=== PATIENT | male | born 1945 | race Caucasian/White ===

== ENCOUNTER 2022-03-13 10:55 | Inpatient (IN) | payer OTHER, SELFPAY ==
[2022-03-13] VITALS (17 sets, daily range): BP systolic 157–191; BP diastolic 72–135; PULSE 57–82; RESP 12–20; TEMP 36.1–37.1; O2SAT 91–99; BMI 27.3
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
--- NOTE | 2022-03-13 | SCC_ITS ---
Procedure done: Open reduction internal fixation right bimalleolar ankle fracture dislocation with complete dislocation and comminuted fractures 90.7 seconds of fluoroscopic guidance, for a cumulative dose of 0.83 mGy, was provided to Dr. Hand by the radiology department. C-arm images of the RIGHT ankle were saved for the patient's permanent record. [facility]
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
[2022-03-13 11:45] LABS: Basophils # 0.1 10^3/uL (0.0-0.1); Basophils % 0.6 %; Eosinophils # 0.2 10^3/uL (0.0-0.8); Hematocrit 36.5 % (42.0-52.0); Hemoglobin 12.7 g/dL (11.7-16.6); Lymphocytes # 1.9 10^3/uL (0.8-4.8); Lymphocytes % 17.5 %; Mean Corpuscular HGB Conc 34.8 g/dL (30.0-36.0); Mean Corpuscular Hemoglobin 30.5 pg (28.0-34.0); Mean Corpuscular Volume 87.7 fl (80-94); Mean Platelet Volume 10.4 fL (7.4-10.4); Monocytes # 0.8 10^3/uL (0.2-0.9); Monocytes % 7.1 %; Neutrophils # 7.77 10^3/uL (1.8-7.7); Neutrophils % 72.2 %; Nucleated Red Blood Cells % 0 %; Platelet Count 250 10^3/cmm (130-400); Red Blood Count 4.16 10^6/uL (4.1-5.3); Red Cell Distribution Width 12.7 % (12.1-15.1); White Blood Count 10.8 10^3/uL (4.0-10.0)
[2022-03-13] MEDS: iodixanol 320 mg/mL 100mL Btl IV (11:52)
[2022-03-13] MEDS: tetanus-diphtheria tox (adult) 0.5 mL SDV IM (11:58)
--- NOTE | 2022-03-13 12:05 | PC.PHAR ---
MEDS VERIFIED USING MED LIST FROM PT. [facility] FILL[facility] AND [facility] ARE CLOSED
[2022-03-13 12:15] LABS: Alanine Aminotransferase 12 U/L (0-41); Albumin Level 4.2 g/dL (3.5-5.2); Alkaline Phosphatase 79 IU/L (40-130); Aspartate Amino Transferase 23 U/L (0-40); Blood Urea Nitrogen 14 mg/dL (8-23); Calcium 8.8 mg/dL (8.5-10.5); Carbon Dioxide 23 mmol/L (22-29); Chloride 107 mmol/L (98-107); Globulin 2.6 g/dL (1.3-4.6); Glucose 114 mg/dL (65-115); Osmolality Calculated 293 mOsm/kg (285-295); Sodium 141 mmol/L (136-145); Total Bilirubin 0.8 mg/dL (0.15-1.2); Total Protein 6.8 g/dL (6.6-8.7)
[2022-03-13 12:21] LABS: Add Urine Microscopic? NO; Charge for UA Resulting for Rev
[2022-03-13 12:25] LABS: Protein Urine Neg (Negative); Specific Gravity, Urine 1.015 (1.005-1.030); Urine Appearance Clear (CLEAR); Urine Color Yellow (Yellow); pH Urine 5 (5-7)
[2022-03-13 12:26] LABS: Bilirubin Urine Neg (Negative); Blood Urine Neg (Negative); Glucose Urine UA Norm (Normal); Ketones Urine Negative (Negative); Leukocyte Esterase Urine Negative (Negative); Nitrate Urine Negative (Negative); Urobilinogen Urine Norm (Negative)
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
--- NOTE | 2022-03-13 13:43 | ECG_ITS ---
[facility] Test Date: 2022-03-13 Pat Name: Parminder Shore Department: Room: 257 Gender: Male [employer] Mounter: : 1945 Requested By: Aram White Order Number: [id number] Shon MD: Gerda Heard M.D. Measurements Intervals [place] Rate: 63 P: 59 KS: 174 QRS: -2 QRSD: 110 T: 69 QT: 406 QTc: 418 Interpretive Statements SINUS RHYTHM WITH OCCASIONAL SUPRAVENTRICULAR PREMATURE COMPLEXES INCOMPLETE RIGHT BUNDLE BRANCH BLOCK [90+ ms QRS DURATION, TERMINAL R IN V1/V2, 40+ ms S IN I/aVL/V4/V5/V6] NONSPECIFIC ST & T-WAVE ABNORMALITY No previous ECG available for comparison Electronically Signed On 03-14-2022 13:01:24 CDT by Gerda Heard M.D. [email or web address]
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
[2022-03-13] MEDS: acetaminophen 1,000 MG/100 ML PIGGYBACK 400 MG IV (14:54)
[2022-03-13] MEDS: CELEcoxib 200 mg Capsule 400 MG PO (14:55)
[2022-03-13] MEDS: fentaNYL 50 mcg/mL INJ 2mL IVP (15:24)
--- NOTE | 2022-03-13 15:44 | P.ANESASSM_ITS ---
Pre-Anesthetic Assessment Height/Weight: Height 1.7 m Weight 79.379 kg Temp Pulse Resp BP Pulse Ox 97.2 F L 82 18 172/100 96 03/13/22 14:45 03/13/22 14:45 03/13/22 14:45 03/13/22 14:45 03/13/22 14:45 Preop Diagnosis: Right ankle fracture dislocation Operation Date: 03/13/22 15:50 Proposed Procedures p ORIF Ankle(Right) - Alina Hand MD Familial anesthetic complications: none Was Beta Osmar taken within 24 hours: Yes Was Clonidine taken within 24 hours: Yes Social No alcohol and No tobacco Exam alert, oriented x 3 and regular rate & rhythm Airway Submandibular: within normal limits Cervical ROM: within normal limits Mallampati: Class II Dentition: false Pulmonary Chronic Obstructive Pulmonary Disease CV/HEM Coronary Artery Disease, Hypertension and Myocardial Infarction (stent X 5) cardiomegaly Chronic Renal Insufficiency Metabolic Hyperlipidemia [facility] [place] Lower Back Pain Anesthetic Plan ASA status: 3 Anesthesia: General and Regional (specify below) (right pop blk) Medications/Allergies Home Medications Medication Instructions Recorded Confirmed Last Taken Type carvedilol 6.25 mg tablet 6.25 mg PO BID 03/13/22 03/13/22 03/13/22 History cholecalciferol (vitamin D3) 50 50 mcg PO DAILY 03/13/22 03/13/22 03/13/22 History mcg (2,000 unit) tablet (Vitamin D3) clonidine HCl 0.1 mg tablet 1 mg PO BID 03/13/22 03/13/22 03/13/22 History docusate sodium 50 mg capsule 50 mg PO BEDTIME 03/13/22 03/13/22 03/12/22 History (Stool Softener) gabapentin 300 mg capsule 300 mg PO BID 03/13/22 03/13/22 03/13/22 History hydrocodone 10 mg-acetaminophen 1 tab PO QID 03/13/22 03/13/22 03/13/22 History 325 mg tablet hydroxyzine HCl 50 mg tablet 50 mg PO QID PRN 03/13/22 03/13/22 Unknown History prazosin 2 mg capsule 2 mg PO QPM 03/13/22 03/13/22 03/12/22 History simvastatin 40 mg tablet 20 mg PO QPM 03/13/22 03/13/22 03/12/22 History tamsulosin 0.4 mg capsule 0.4 mg PO DAILY 03/13/22 03/13/22 03/13/22 History vitamins-lipotropics 200 mg-100 mg 2 tab PO DAILY 03/13/22 03/13/22 03/13/22 History tablet (Lipo-Flavonoid Plus) Allergies Allergy/AdvReac Type Severity Reaction Status Date / Time No Known Allergies Allergy Unverified 03/13/22 12:05 Current Medications Generic Name Dose Route Start Last Admin Trade Name Freq PRN Reason Stop Dose Admin Fentanyl 50 mcg 03/13/22 15:22 03/13/22 15:24 Fentanyl 50 Mcg/Ml Inj 2ml IVP 50 mcg Q10M PRN Administration Preop Pain PFSH Anesthesia Medical History BPH (benign prostatic hyperplasia) Hyperlipidemia Hypertension Data Anesthesia : 03/13/22 11:24 03/13/22 11:24 Short CBC 03/13/22 Range/Units 11:24 WBC 10.8 H (4.0-10.0) 10^3/uL Hgb 12.7 (11.7-16.6) g/dL Hct 36.5 L (42.0-52.0) % MCV 87.7 (80-94) fl Plt Count 250 (130-400) 10^3/cmm Neut % (Auto) 72.2 % Neut # (Auto) 7.77 H (1.8-7.7) 10^3/uL BMP 03/13/22 11:24 Sodium 141 Potassium 4.0 Chloride 107 Carbon Dioxide 23 BUN 14 Creatinine 1.1 Glucose 114 Calcium 8.8 Liver Function 03/13/22 Range/Units 11:24 Total Bilirubin 0.8 (0.15-1.2) mg/dL AST 23 (0-40) U/L ALT 12 (0-41) U/L Alkaline Phosphatase 79 (40-130) IU/L Albumin 4.2 (3.5-5.2) g/dL Urine 03/13/22 Range/Units 12:16 Urine Color Yellow (Yellow) Urine Appearance Clear (CLEAR) Urine pH 5 (5-7) Ur Specific Harbinger 1.015 (1.005-1.030) Urine Protein Neg (Negative) Urine Glucose (UA) Norm (Normal) Urine Ketones Negative (Negative) Urine Nitrate Negative (Negative) Urine Bilirubin Neg (Negative) Ur Leukocyte Esterase Negative (Negative) Cardiac Studies: No Data to Display Anesthesia Procedures Nerve Block Nerve Block 1: Main Anesthesia: general anesthesia Time Out Performed: Yes Consent: requested by attending/covering physician, from patient, risks and benefits reviewed and patient agrees to proceed Nerve block location: popliteal (right) Anesthesia monitors applied: pulse oximetry, EKG, BP cuff and oxygen Nerve block position: supine Anesthetic Used: ropivicaine 0.5% Amount of anesthesia used (mL): 30 Ultrasound used to: recognize landmarks Nerve Stimulator Used?: No Interscalene/Femoral BLK: 4 stimuplex 21 g needle used for position and inplane approach and visualize local anesthetic spread Injection: neg aspiration of heme Patient Tolerated Procedure: well Complications: none
--- NOTE | 2022-03-13 15:49 | PC.NURSE ---
Conscious sedation for reduction of right ankle fracture. Informed consent for signed by and witnessed by RT Angelo This nurse, RT Angelo, and Dr. Shea present in room. 1323: etomidate 10mg administered IVP. vitals: BP 172/111 P70 R14 98%RA Pts ankle reduces and splint applied with assistance and under direction of Dr. Shea. 1338 Pt recovered vitals: BP 165/88 P71 R12 99% RA Continuous cardiac, BP, Spo2 monitoring continued.
[2022-03-13] MEDS: vancomycin 1,000 MG in sodium chloride 0.9% 250 ML 250 MG IV (16:12)
--- NOTE | 2022-03-13 16:40 | PC.NURSE ---
pt beatrice Livingston RN House supervisor brought patient belongings to this nurse, paper was filled out with items listed and placed in [facility]. The items were 3 small zip loc bags filled with home medications, a black handkerchief, and $240 (2-100 bills, 2-20 bills). Placed in [facility], witnessed by Debbie Livingston.
[2022-03-13] MEDS: ceFAZolin 1,000 mg SDV 1000 MG IRRIGATION (16:45)
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
[2022-03-13] MEDS: HYDROmorphone 1 mg/mL INJ 1 mL 0.5 MG IVP (18:33)
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
[2022-03-13] MEDS: D5-NS 0.45% + KCL 20 mEq 20 MEQ/1,000 ML BAG 100 MEQ IV (21:31)
[2022-03-13 21:38] LABS: Basophils % 0.3 %; Hematocrit 39.5 % (42.0-52.0); Hemoglobin 13.2 g/dL (11.7-16.6); Lymphocytes % 10.4 %; Mean Corpuscular HGB Conc 33.4 g/dL (30.0-36.0); Mean Corpuscular Hemoglobin 30.5 pg (28.0-34.0); Mean Corpuscular Volume 91.2 fl (80-94); Mean Platelet Volume 10.6 fL (7.4-10.4); Monocytes # 0.4 10^3/uL (0.2-0.9); Monocytes % 3.6 %; Neutrophils # 8.35 10^3/uL (1.8-7.7); Neutrophils % 84.8 %; Nucleated Red Blood Cells % 0 %; Platelet Count 185 10^3/cmm (130-400); Red Blood Count 4.33 10^6/uL (4.1-5.3); Red Cell Distribution Width 12.6 % (12.1-15.1); White Blood Count 9.8 10^3/uL (4.0-10.0)
[2022-03-13 21:46] LABS: INR 1.09 (0.8-1.2); Partial Thromboplastin Time 24.9 SECONDS (23.9-36.7)
[2022-03-13 21:54] LABS: Alanine Aminotransferase 13 U/L (0-41); Albumin Level 4.1 g/dL (3.5-5.2); Alkaline Phosphatase 73 IU/L (40-130); Aspartate Amino Transferase 32 U/L (0-40); Blood Urea Nitrogen 13 mg/dL (8-23); Calcium 8.5 mg/dL (8.5-10.5); Carbon Dioxide 18 mmol/L (22-29); Chloride 104 mmol/L (98-107); Globulin 2.1 g/dL (1.3-4.6); Glucose 120 mg/dL (65-115); Osmolality Calculated 289 mOsm/kg (285-295); Sodium 139 mmol/L (136-145); Total Protein 6.2 g/dL (6.6-8.7)
[2022-03-13 21:56] LABS: Anion Gap 21.4 (5-19); Potassium 4.4 mmol/L (3.5-5.1)
[2022-03-14] VITALS (8 sets, daily range): BP systolic 117–176; BP diastolic 67–81; PULSE 55–75; RESP 14–18; TEMP 36.6–36.9; O2SAT 93–98
[2022-03-14] MEDS: acetaminophen 1,000 MG/100 ML PIGGYBACK 400 MG IV ×2 (00:49→09:38)
--- NOTE | 2022-03-14 03:55 | PC.NURSE ---
used bladder scanner. shows approximately 200ml. nurse notified
[2022-03-14 05:14] LABS: Basophils % 0.2 %; Hematocrit 33.2 % (42.0-52.0); Hemoglobin 11.7 g/dL (11.7-16.6); Lymphocytes # 1.2 10^3/uL (0.8-4.8); Mean Corpuscular HGB Conc 35.2 g/dL (30.0-36.0); Mean Corpuscular Hemoglobin 30.2 pg (28.0-34.0); Mean Corpuscular Volume 85.8 fl (80-94); Mean Platelet Volume 10.2 fL (7.4-10.4); Monocytes % 9.6 %; Neutrophils # 8.26 10^3/uL (1.8-7.7); Neutrophils % 78.7 %; Nucleated Red Blood Cells % 0 %; Platelet Count 226 10^3/cmm (130-400); Red Blood Count 3.87 10^6/uL (4.1-5.3); Red Cell Distribution Width 12.5 % (12.1-15.1); White Blood Count 10.5 10^3/uL (4.0-10.0)
[2022-03-14 05:44] LABS: Anion Gap 15.2 (5-19); Blood Urea Nitrogen 17 mg/dL (8-23); Calcium 8.2 mg/dL (8.5-10.5); Carbon Dioxide 21 mmol/L (22-29); Chloride 106 mmol/L (98-107); Glucose 161 mg/dL (65-115); Osmolality Calculated 291 mOsm/kg (285-295); Potassium 4.2 mmol/L (3.5-5.1); Sodium 138 mmol/L (136-145)
[2022-03-14] MEDS: oxyCODONE 5 mg IR Tab/Cap PO ×3 (05:49→15:12)
[2022-03-14] MEDS: CELEcoxib 200 mg Capsule PO (09:36)
[2022-03-14] MEDS: cloNIDine 0.1 mg Tablet PO (09:36)
[2022-03-14] MEDS: pantoprazole DR 40 mg Tablet PO (09:36)
[2022-03-14] MEDS: docusate sodium 100 mg Capsule PO (09:36)
[2022-03-14] MEDS: cholecalciferol (vitamin D3) 1,000 unit Tablet 2000 UNIT PO (09:36)
[2022-03-14] MEDS: carvedilol 6.25 mg Tablet PO (09:37)
[2022-03-14] MEDS: gabapentin 300 mg Capsule PO (09:37)
[2022-03-14] MEDS: aspirin 325 mg EC Tablet PO (09:37)
[2022-03-14] MEDS: neomycin-poly-bacitracin oint 28 gm 1 APPLIC TOPICAL (09:39)
[2022-03-14] MEDS: tamsulosin 0.4 mg Capsule PO (09:40)
--- NOTE | 2022-03-14 11:01 | ANE.PACU2 ---
Inpatient post-anesthesia follow up: Airway intact: Yes Vital signs: Temperature 98.4 F Pulse Rate 58 Respiratory Rate 15 Blood Pressure 175/81 Pulse Oximetry 97 Oxygen Delivery Me thod Room Air Oxygen Flow Rate 6 Fraction of Inspir ed Oxygen Hydration adequate: Yes Nausea and vomiting: No Pain level: 3 Mental status: Baseline
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
[2022-03-14 14:06] LABS: Creatine Phosphokinase 556 U/L (39-308)
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
[2022-03-14] MEDS: lisinopril 20 mg Tablet PO (15:08)
== END 2022-03-14 15:30 | disposition home health service (06) | DRG 493 ==
LOC: ER 13:56 → OR 14:19 → MEDSURG 19:16
PROVIDERS: Admitting Provider Specialist; Emergency Provider Family Medicine; Visit Provider Family Medicine
PROC: 0QSJ04Z Reposition Right Fibula with Internal Fixation Device, Open Approach (ICD-10-PCS; principal; 2022-03-13 15:30)
DX: S82.841A Displaced bimalleolar fracture of right lower leg, initial encounter for closed fracture (principal); N17.9 Acute kidney failure, unspecified; M62.82 Rhabdomyolysis; S00.01XA Abrasion of scalp, initial encounter; S60.512A Abrasion of left hand, initial encounter; S60.511A Abrasion of right hand, initial encounter; V28.4XXA Motorcycle driver injured in noncollision transport accident in traffic accident, initial encounter; I10 Essential (primary) hypertension; N40.0 Benign prostatic hyperplasia without lower urinary tract symptoms; G47.30 Sleep apnea, unspecified; E78.5 Hyperlipidemia, unspecified; M54.50 Low back pain, unspecified; G89.29 Other chronic pain; R20.2 Paresthesia of skin; I25.10 Atherosclerotic heart disease of native coronary artery without angina pectoris; F43.10 Post-traumatic stress disorder, unspecified; E55.9 Vitamin D deficiency, unspecified; L29.9 Pruritus, unspecified; F17.210 Nicotine dependence, cigarettes, uncomplicated; Z23 Encounter for immunization; Z96.651 Presence of right artificial knee joint; Z95.5 Presence of coronary angioplasty implant and graft
CPT/HCPCS: 27810; 36415; 51701; 51798; 64450; 70450; 71260; 72125; 73130; 73600; 73610; 74177; 76000; 76942; 80048; 80053; 81003; 82550; 85025; 85610; 85730; 90471; 90714; 93005; 96365; 96367; 96375; 97161; 97165; 99285; C1713; J0690; J1100; J1170; J2370; J2405; J2704; J2795; J3010; J3370; J3490; J7050; Q9967

== ENCOUNTER → 2022-04-07 13:28 | Outpatient (BNVA) | payer OTHER, SELFPAY | PROVIDERS: Visit Provider Specialist | DX: V29.9XXA Motorcycle rider (driver) (passenger) injured in unspecified traffic accident, initial encounter (principal); S82.841A Displaced bimalleolar fracture of right lower leg, initial encounter for closed fracture; Z98.890 Other specified postprocedural states; Z87.81 Personal history of (healed) traumatic fracture | CPT/HCPCS: 73610; 99024 ==

== ENCOUNTER → 2022-04-21 13:20 | Outpatient (BNVA) | payer OTHER, SELFPAY | PROVIDERS: Absent Provider Specialist; Visit Provider Specialist | DX: S82.841A Displaced bimalleolar fracture of right lower leg, initial encounter for closed fracture (principal); Z98.890 Other specified postprocedural states; Z87.81 Personal history of (healed) traumatic fracture; X58.XXXA Exposure to other specified factors, initial encounter | CPT/HCPCS: 73610; 99024 ==

== ENCOUNTER → 2022-05-12 14:48 | Outpatient (BNVA) | payer OTHER, SELFPAY | PROVIDERS: Visit Provider Specialist | DX: Z98.890 Other specified postprocedural states (principal); Z87.81 Personal history of (healed) traumatic fracture; S82.841A Displaced bimalleolar fracture of right lower leg, initial encounter for closed fracture; X58.XXXA Exposure to other specified factors, initial encounter | CPT/HCPCS: 73610; 99024 ==